=== PATIENT | male | born 1935 | race Caucasian/White ===

== ENCOUNTER 2016-06-27 17:14 | Inpatient (IN) | payer OTHER ==
[~2016-06-27] VITALS: Ht 177.8 cm; Wt 111.1 kg
[~2016-06-27 17:14] MED LIST: ADULT LOW DOSE81 M1 PO; ADVAIR HFA120 INHALA IH; AMLODIPINE-BEN1 EAC3 PO; AMOX TR-K CLV1 EAC4 PO; ANTI-DIARRHEA2 MG PO; CENTRUM SILVER1 EAC1 PO; CENTRUM SILVER1 EAC3 PO; CIPRO500 MG PO; CRESTOR5 MG PO; FERROUS SULFAT325 M2 PO; GLIPIZIDE ER2.5 MG PO; GLUCOPHAGE500 MG PO; GUAIFENESIN600 M1 PO; IRON325 MG PO; LOTREL 2.5/1 CAPSULE PO; LOTREL 5/201 CAPSULE PO; LUPRON DEPOT45 MG IM; NICOTINE PATCH1 EAC2 TD; PANTOPRAZOLE SO40 MG PO; PATANOL OP100 DROP/5 RIGHT EYE; PRAVACHOL10 MG PO; PRAVASTATIN SOD40 MG PO; PREDNISONE20 MG PO; PREDNISONE5 MG PO; PROTONIX40 MG PO; PROVENTIL,2.5 MG/3 M IH; RAYOS5 MG PO; SPIRIVA1 INHALATI IH; TAMSULOSIN HCL0.4 MG PO; VENTOLIN HFA18 GM IH; ZESTORETIC,P1 TABLET PO
[2016-06-27 18:04] LABS: BASE EXCESS 14.8 mEq/L (-3 to +3); BICARBONATE 43.8 mEq/L (22-26); METHEMOGLOBIN 0.9 % (0-1.5); PO2 50 mm Hg (80-100); pH 7.33 (7.35-7.45)
[2016-06-27 18:05] LABS: COMMENTS - BLOOD GASES A+C+; DEVICE NC; O2 FLOW 3 L/MIN; PCO2 83 mm Hg (35-45); SITE RR
[2016-06-27 18:37] LABS: ADD MIUA? YES; BILIRUBIN NEGATIVE; BLOOD NEGATIVE; COLOR YELLOW ((YELLOW)); GLUCOSE (STRIP) NEGATIVE; KETONES NEGATIVE; LEUKOCYTES NEGATIVE; NITRITE NEGATIVE; PH, URINE 6.5 (5-8); PROTEIN (STRIP) 100; UROBILINOGEN 0.2 MG/DL (0.2-1.0)
[2016-06-27 18:41] LABS: HEMATOCRIT 35.6 % (38.0-50.0); MCH 30.4 PG (29.0-34.0); MCHC 29.8 G/DL (30.0-36.0); MEAN PLAT.VOLUME 12.2 uM^3 (9.0-12.4); PLATELET COUNT 102 K/uL (156-360); RBC DIS.WIDTH-CV 14.9 % (11.8-14.6); RBC DIS.WIDTH-SD 53.3 % (39-53); RED BLOOD COUNT 3.49 M/uL (4.00-5.50); WHITE BLOOD COUNT 17.7 K/uL (4.1-10.2)
[2016-06-27 18:58] LABS: CHLORIDE 98 mEq/L (99-109); POTASSIUM 4.6 mEq/L (3.7-5.4); SODIUM 143 mEq/L (136-147)
[2016-06-27 19:00] LABS: GLUCOSE 90 mg/dL (70-99)
[2016-06-27 19:01] LABS: ANION GAP 8 MEQ/L (2-14)
[2016-06-27 19:02] LABS: TOTAL BILIRUBIN 0.3 mg/dL (0.0-1.0)
[2016-06-27 19:03] LABS: ALKALINE PHOSPHATASE 72 IU/L (3-129)
[2016-06-27 19:04] LABS: GFR ESTIMATE (CALCULATED) > 59 mL/min/
[2016-06-27 19:05] LABS: UREA NITROGEN (BUN) 26 mg/dL (9-23)
[2016-06-27 19:06] LABS: NRBC (%) 0.2 /100 WBC (0-0)
[2016-06-27 19:08] LABS: TROP-I INTERPRETATION NEGATIVE; TROPONIN-I < 0.01 ng/mL (0.0-0.30)
[2016-06-27 19:36] LABS: RED BLOOD CELLS 0-5 /HPF (0-5); WHITE BLOOD CELLS 0-5 /HPF (0-5)
[2016-06-27 19:37] LABS: BACTERIA RARE; CASTS NONE SEEN /LPF; CRYSTALS NONE SEEN; EPITHELIAL CELLS NONE SEEN; MUCUS NONE SEEN; UCUL ADDED? NO
[2016-06-27 20:23] LABS: ABS NEUTROPHIL COUNT 13.25; DELETE MACHINE DIFF? YES; EOSINOPHIL ABS CT 0.18; USER ID VLB
[2016-06-27 20:52] LABS: BASE EXCESS 13.2 mEq/L (-3 to +3); BICARBONATE 43.5 mEq/L (22-26); CARBOXY HGB 1.6 % (0-5); METHEMOGLOBIN 1.2 % (0-1.5)
[2016-06-27 20:53] LABS: COMMENTS - BLOOD GASES C+A+; DEVICE NIV; FI02 40 %; MODE SPONT; PCO2 97 mm Hg (35-45); PEEP 5 CM/H20; PO2 91 mm Hg (80-100); PRES. SUPPORT 15 CM/H2O; SITE RR; TOTAL RESP RATE 24 resp/min; pH 7.26 (7.35-7.45)
[2016-06-27 22:15] LABS: BASE EXCESS 13.6 mEq/L (-3 to +3); BICARBONATE 42.1 mEq/L (22-26); COMMENTS - BLOOD GASES C+A+; DEVICE NIV; FI02 30 %; MECHANICAL RATE 20 resp/min; METHEMOGLOBIN 1.3 % (0-1.5); MODE SIMV; PCO2 78 mm Hg (35-45); PEEP 8 CM/H20; PO2 55 mm Hg (80-100); PRES. SUPPORT 15 CM/H2O; SITE RR; TIDAL VOLUME 600 ML; TOTAL RESP RATE 27 resp/min; pH 7.34 (7.35-7.45)
[2016-06-27 23:06] VITALS: BP 164/65
[2016-06-27 23:28] VITALS: BP 164/65
[2016-06-28] VITALS (22 sets, daily range): BP systolic 119–169; BP diastolic 42–78
[2016-06-28 00:07] LABS: POINT-OF-CARE USER ID LABHNS84
[2016-06-28 00:42] LABS: METH RESISTANT S AUREUS PCR NEGATIVE (NEGATIVE)
[2016-06-28 00:57] LABS: PROBE CHECK PASS; SPECIMEN PROCESSING CONTROL PASS
[2016-06-28 01:03] LABS: D-DIMER ELISA 0.49 mg/L FEU (< 0.57); INTER. NORMALIZED RATIO 1.1; PROTHROMBIN TIME 10.7 (9.2-11.2)
[2016-06-28 06:15] LABS: POINT-OF-CARE METER ID UU13113748; POINT-OF-CARE USER ID LABHNS84
[2016-06-28 06:23] LABS: ANION GAP 7 MEQ/L (2-14); CHLORIDE 97 MEQ/L (99-109); GFR ESTIMATE (CALCULATED) 57 mL/min/; GLUCOSE 234 mg/dL (70-99); MAGNESIUM 2.1 mg/dl (1.3-2.7); POTASSIUM 5.1 MEQ/L (3.7-5.4); SAMPLE HEMOLYSIS CHECK 0; SAMPLE ICTERIC CHECK 0; SAMPLE LIPEMIA CHECK 0; SODIUM 141 MEQ/L (136-147); TROP-I INTERPRETATION NEGATIVE; TROPONIN-I < 0.01 ng/mL (0.0-0.30); UREA NITROGEN (BUN) 27 mg/dL (9-23)
[2016-06-28 06:38] LABS: HEMATOCRIT 36.6 % (38.0-50.0); MCH 30.6 PG (29.0-34.0); MCHC 30.1 G/DL (30.0-36.0); MCV 101.7 FL (86-99); RBC DIS.WIDTH-SD 55.4 % (39-53); WHITE BLOOD COUNT 15.6 K/uL (4.1-10.2)
[2016-06-28 07:18] LABS: HEMATOLOGY COMMENT 1 REV
[2016-06-28 07:22] LABS: MEAN PLAT.VOLUME 13.3 uM^3 (9.0-12.4); PLATELET COUNT 99 K/uL (156-360)
[2016-06-28] MEDS ORDERED: SYMBICORT60 INHALAT IH (12:39)
[2016-06-28] MEDS ORDERED: PRAVACHOL10 MG PO (12:39)
[2016-06-28] MEDS ORDERED: LOW DOSE ASPIRI81 M1 PO (12:41)
[2016-06-28] MEDS ORDERED: FISH OIL300 MG PO (12:42)
[2016-06-28] MEDS ORDERED: CENTRUM SILVER1 EAC3 PO (12:42)
[2016-06-28 13:10] LABS: TROP-I INTERPRETATION NEGATIVE; TROPONIN-I < 0.01 ng/mL (0.0-0.30)
[2016-06-28 18:03] LABS: POINT-OF-CARE METER ID UU13113748
[2016-06-28 18:54] LABS: TROP-I INTERPRETATION NEGATIVE; TROPONIN-I < 0.01 ng/mL (0.0-0.30)
[2016-06-29] VITALS (19 sets, daily range): BP systolic 95–190; BP diastolic 51–80
[2016-06-29 05:41] LABS: POINT-OF-CARE METER ID UU14174217
[2016-06-29 06:21] LABS: HEMATOCRIT 34.9 % (38.0-50.0); MCHC 30.1 G/DL (30.0-36.0); MCV 99.7 FL (86-99); MEAN PLAT.VOLUME 12.5 uM^3 (9.0-12.4); PLATELET COUNT 105 K/uL (156-360); RBC DIS.WIDTH-SD 54.4 % (39-53)
[2016-06-29 06:24] LABS: WHITE BLOOD COUNT 22.3 K/uL (4.1-10.2)
[2016-06-29 06:47] LABS: ANION GAP 7 MEQ/L (2-14); CHLORIDE 99 MEQ/L (99-109); GFR ESTIMATE (CALCULATED) > 59 mL/min/; GLUCOSE 187 mg/dL (70-99); MAGNESIUM 2.2 mg/dl (1.3-2.7); POTASSIUM 4.8 MEQ/L (3.7-5.4); SAMPLE HEMOLYSIS CHECK 0; SAMPLE ICTERIC CHECK 0; SAMPLE LIPEMIA CHECK 0; SODIUM 141 MEQ/L (136-147); UREA NITROGEN (BUN) 31 mg/dL (9-23)
[2016-06-29 09:01] LABS: POINT-OF-CARE METER ID UU14174217
[2016-06-29 13:01] LABS: POINT-OF-CARE METER ID UU14174217
[2016-06-29 17:30] LABS: POINT-OF-CARE METER ID UU14174217
[2016-06-29 21:59] LABS: POINT-OF-CARE METER ID UU14162636
[2016-06-30] VITALS (12 sets, daily range): BP systolic 135–197; BP diastolic 57–89
[2016-06-30 06:27] LABS: PLATELET COUNT 124 K/uL (156-360)
[2016-06-30 06:44] LABS: HEMATOCRIT 36.4 % (38.0-50.0); MCH 29.9 PG (29.0-34.0); MCHC 29.9 G/DL (30.0-36.0); MCV 99.7 FL (86-99); RBC DIS.WIDTH-CV 15.1 % (11.8-14.6); RED BLOOD COUNT 3.65 M/uL (4.00-5.50)
[2016-06-30 06:46] LABS: WHITE BLOOD COUNT 36.1 K/uL (4.1-10.2)
[2016-06-30 06:57] LABS: ANION GAP 8 MEQ/L (2-14); CHLORIDE 96 MEQ/L (99-109); GFR ESTIMATE (CALCULATED) > 59 mL/min/; GLUCOSE 253 mg/dL (70-99); MAGNESIUM 2.3 mg/dl (1.3-2.7); POTASSIUM 5.2 MEQ/L (3.7-5.4); SAMPLE HEMOLYSIS CHECK 0; SAMPLE ICTERIC CHECK 0; SAMPLE LIPEMIA CHECK 0; SODIUM 140 MEQ/L (136-147); UREA NITROGEN (BUN) 38 mg/dL (9-23)
[2016-06-30 22:27] LABS: POINT-OF-CARE METER ID UU13113731
[2016-07-01] VITALS (8 sets, daily range): BP systolic 108–174; BP diastolic 55–79
[2016-07-01 05:43] LABS: ANION GAP 8 MEQ/L (2-14); CHLORIDE 97 MEQ/L (99-109); GFR ESTIMATE (CALCULATED) > 59 mL/min/; GLUCOSE 231 mg/dL (70-99); MAGNESIUM 2.1 mg/dl (1.3-2.7); POTASSIUM 5.1 MEQ/L (3.7-5.4); SAMPLE HEMOLYSIS CHECK 0; SAMPLE ICTERIC CHECK 0; SAMPLE LIPEMIA CHECK 0; SODIUM 138 MEQ/L (136-147); UREA NITROGEN (BUN) 38 mg/dL (9-23)
[2016-07-01 07:27] LABS: HEMATOCRIT 36.9 % (38.0-50.0); HEMATOLOGY COMMENT 1 SMEAR COMPATIBLE; MCH 30.3 PG (29.0-34.0); MCHC 30.4 G/DL (30.0-36.0); MCV 99.7 FL (86-99); MEAN PLAT.VOLUME 13.5 uM^3 (9.0-12.4); PLATELET COUNT 118 K/uL (156-360); RBC DIS.WIDTH-CV 15.2 % (11.8-14.6); RBC DIS.WIDTH-SD 55.3 % (39-53); WHITE BLOOD COUNT 37.5 K/uL (4.1-10.2)
[2016-07-01 22:32] LABS: POINT-OF-CARE METER ID UU13113748
[2016-07-02] VITALS: BP 162/63
[2016-07-02 04:00] VITALS: BP 160/67
[2016-07-02 06:08] LABS: MEAN PLAT.VOLUME 12.8 uM^3 (9.0-12.4); PLATELET COUNT 127 K/uL (156-360)
[2016-07-02 06:32] LABS: HEMATOCRIT 37.5 % (38.0-50.0); MCH 30.1 PG (29.0-34.0); MCHC 30.1 G/DL (30.0-36.0); RBC DIS.WIDTH-CV 15.3 % (11.8-14.6); RBC DIS.WIDTH-SD 55.5 % (39-53); RED BLOOD COUNT 3.75 M/uL (4.00-5.50)
[2016-07-02 06:33] LABS: WHITE BLOOD COUNT 33.9 K/uL (4.1-10.2)
[2016-07-02 06:41] LABS: ANION GAP 7 MEQ/L (2-14); CHLORIDE 94 MEQ/L (99-109); GFR ESTIMATE (CALCULATED) 57 mL/min/; GLUCOSE 192 mg/dL (70-99); MAGNESIUM 2.1 mg/dl (1.3-2.7); POTASSIUM 4.9 MEQ/L (3.7-5.4); SAMPLE HEMOLYSIS CHECK 0; SAMPLE ICTERIC CHECK 0; SAMPLE LIPEMIA CHECK 0; SODIUM 137 MEQ/L (136-147); UREA NITROGEN (BUN) 37 mg/dL (9-23)
[2016-07-02 08:00] VITALS: BP 160/89
[2016-07-02 09:11] LABS: POINT-OF-CARE METER ID UU13113731
[2016-07-02] MEDS ORDERED: PREDNISONE10 MG PO (11:26)
[2016-07-02] MEDS ORDERED: SPIRIVA RESPIMAT4 GM IH (11:26)
[2016-07-02 11:52] LABS: POINT-OF-CARE METER ID UU13113731
[2016-07-03 10:02] LABS: POINT-OF-CARE METER ID UU13113731
== END 2016-07-02 14:11 | disposition home or self-care (01) | DRG 189 ==
LOC: EME 17:14 → EDOF 21:14 → 4WEST 21:14
PROVIDERS: Emergency Medicine; Family Medicine; Hospitalist
DX: J96.21 Acute and chronic respiratory failure with hypoxia (principal); J44.0 Chronic obstructive pulmonary disease with (acute) lower respiratory infection; E11.69 Type 2 diabetes mellitus with other specified complication; F05 Delirium due to known physiological condition; J44.1 Chronic obstructive pulmonary disease with (acute) exacerbation; I10 Essential (primary) hypertension; E78.5 Hyperlipidemia, unspecified; D72.829 Elevated white blood cell count, unspecified; E66.9 Obesity, unspecified; Z68.34 Body mass index [BMI] 34.0-34.9, adult; J96.22 Acute and chronic respiratory failure with hypercapnia; Z87.891 Personal history of nicotine dependence; T38.0X5A Adverse effect of glucocorticoids and synthetic analogues, initial encounter; J20.9 Acute bronchitis, unspecified; G47.33 Obstructive sleep apnea (adult) (pediatric); Z91.19 Patient's noncompliance with other medical treatment and regimen; K21.9 Gastro-esophageal reflux disease without esophagitis; Z86.73 Personal history of transient ischemic attack (TIA), and cerebral infarction without residual deficits; Z85.46 Personal history of malignant neoplasm of prostate; Z85.828 Personal history of other malignant neoplasm of skin
CPT/HCPCS: 36600; 70450; 71010; 71020; 80048; 80053; 81003; 82803; 82948; 83735; 83880; 84100; 84484; 85025; 85027; 85379; 85610; 85730; 87641; 93005; 94002; 94003; 94640; 94640 76; 94760; 94799; 97530 GO; 99202; 99281; 99285; C9113; J0456; J0696; J1644; J1815; J2920; J2930; J7050; J7120; J7512

== ENCOUNTER 2017-06-02 10:34 | Emergency (ER) | payer OTHER ==
[~2017-06-02] VITALS: Ht 177.8 cm; Wt 110.3 kg
[~2017-06-02 10:34] MED LIST changes: +FISH OIL300 MG PO; +LOW DOSE ASPIRI81 M1 PO; +PREDNISONE10 MG PO; +SPIRIVA RESPIMAT4 GM IH; +SYMBICORT60 INHALAT IH
[2017-06-02] MEDS ORDERED: CEPHALEXIN500 MG PO (10:54)
[2017-06-02 11:23] VITALS: BP 146/61
== END 2017-06-02 11:23 | disposition home or self-care (01) ==
LOC: EME 10:34
DX: Z48.817 Encounter for surgical aftercare following surgery on the skin and subcutaneous tissue (principal); S51.802A Unspecified open wound of left forearm, initial encounter; Z98.890 Other specified postprocedural states; Z85.828 Personal history of other malignant neoplasm of skin; K21.9 Gastro-esophageal reflux disease without esophagitis; I10 Essential (primary) hypertension; E78.5 Hyperlipidemia, unspecified; E11.9 Type 2 diabetes mellitus without complications; J44.9 Chronic obstructive pulmonary disease, unspecified; Z87.891 Personal history of nicotine dependence; Z79.82 Long term (current) use of aspirin
CPT/HCPCS: 99281; 99284

== ENCOUNTER 2017-08-07 02:33 | Emergency (ER) | payer OTHER ==
[~2017-08-07] VITALS: Ht 177.8 cm; Wt 75.9 kg
[~2017-08-07 02:33] MED LIST changes: +CEPHALEXIN500 MG PO
[2017-08-07 05:34] VITALS: BP 164/77
== END 2017-08-07 05:41 | disposition home or self-care (01) ==
LOC: EME 02:33
PROC: 2W3CX1Z Immobilization of Right Lower Arm using Splint (ICD-10-PCS; principal; 2017-08-07)
DX: S52.514A Nondisplaced fracture of right radial styloid process, initial encounter for closed fracture (principal); S09.90XA Unspecified injury of head, initial encounter; E11.9 Type 2 diabetes mellitus without complications; I10 Essential (primary) hypertension; E78.5 Hyperlipidemia, unspecified; K21.9 Gastro-esophageal reflux disease without esophagitis; W01.0XXA Fall on same level from slipping, tripping and stumbling without subsequent striking against object, initial encounter; Z87.891 Personal history of nicotine dependence; Z85.828 Personal history of other malignant neoplasm of skin; Z79.84 Long term (current) use of oral hypoglycemic drugs; Z79.82 Long term (current) use of aspirin
CPT/HCPCS: 70450; 71046; 73110; 99281; 99284

== ENCOUNTER 2017-09-19 07:04 | Inpatient (IN) | payer OTHER ==
[~2017-09-19] VITALS: Ht 177.8 cm; Wt 118.4 kg
[2017-09-19 08:06] LABS: ALBUMIN 3.8 g/dL (3.2-4.8); CHLORIDE 100 mEq/L (99-109); POTASSIUM 4.8 mEq/L (3.7-5.4); SODIUM 143 mEq/L (136-147)
[2017-09-19 08:07] LABS: HEMATOCRIT 34.4 % (38.0-50.0); HEMOGLOBIN 10.6 G/DL (12.5-16.6); MCH 29.9 PG (29.0-34.0); MCHC 30.8 G/DL (30.0-36.0); MCV 96.9 FL (86-99); NRBC (%) 0.1 /100 WBC (0-0); PLATELET COUNT 107 K/uL (156-360); RBC DIS.WIDTH-CV 15.4 % (11.8-14.6); RBC DIS.WIDTH-SD 55.1 % (39-53); RED BLOOD COUNT 3.55 M/uL (4.00-5.50)
[2017-09-19 08:08] LABS: WHITE BLOOD COUNT 40.7 K/uL (4.1-10.2)
[2017-09-19 08:09] LABS: GLUCOSE 145 mg/dL (70-99); TOTAL PROTEIN 6.9 g/dL (6.4-8.3)
[2017-09-19 08:11] LABS: TOTAL BILIRUBIN 0.4 mg/dL (0.0-1.0)
[2017-09-19 08:12] LABS: ALKALINE PHOSPHATASE 86 IU/L (3-129); CREATININE 1.5 mg/dL (0.6-1.3); GFR ESTIMATE (CALCULATED) 48 mL/min/ (58.99-99999)
[2017-09-19 08:13] LABS: UREA NITROGEN (BUN) 26 mg/dL (9-23)
[2017-09-19 08:14] LABS: AST (GOT) 20 IU/L (2-34)
[2017-09-19 08:15] LABS: ALT (GPT) 16 IU/L (3-49)
[2017-09-19 09:01] LABS: APPEARANCE SL.HAZY ((CLEAR)); BILIRUBIN NEGATIVE; BLOOD NEGATIVE; COLOR YELLOW ((YELLOW)); GLUCOSE (STRIP) NEGATIVE; KETONES NEGATIVE; LEUKOCYTES NEGATIVE; NITRITE NEGATIVE; PROTEIN (STRIP) 100; SPECIFIC GRAVITY 1.015 (1.000-1.030); UROBILINOGEN 0.2 MG/DL (0.2-1.0)
[2017-09-19 09:43] LABS: EPITHELIAL CELLS RARE /HPF; RED BLOOD CELLS 0-5 /HPF (0-5); WHITE BLOOD CELLS 0-5 /HPF (0-5)
[2017-09-19 09:45] LABS: AMORPHOUS URATES CRYSTALS 2+; BACTERIA RARE /HPF; MUCUS NONE SEEN /LPF; UCUL ADDED? NO
[2017-09-19 10:37] LABS: BICARBONATE 36.5 mEq/L (22-26); CARBOXY HGB 2.8 % (0-5); COMMENTS - BLOOD GASES A+C+; METHEMOGLOBIN 0.6 % (0-1.5); O2 FLOW 5 L/MIN; PCO2 76 mm Hg (35-45); PO2 61 mm Hg (80-100); SITE RR; pH 7.29 (7.35-7.45)
[2017-09-19 10:38] LABS: DEVICE NC
[2017-09-19 13:32] LABS: BASE EXCESS 7.3 mEq/L (-3 to +3); BICARBONATE 36.3 mEq/L (22-26); METHEMOGLOBIN 0.8 % (0-1.5); PO2 73 mm Hg (80-100)
[2017-09-19 13:33] LABS: COMMENTS - BLOOD GASES A+C+; CONTINUOUS POS AIRWAY PRESSURE 5 cm H2O; DEVICE NIV; FI02 35 %; MODE PS/CPAP; PCO2 81 mm Hg (35-45); PRES. SUPPORT 10 CM/H2O; SITE RR; TOTAL RESP RATE 16 resp/min; pH 7.26 (7.35-7.45)
[2017-09-19 14:45] VITALS: BP 148/55
[2017-09-19 17:53] LABS: BASE EXCESS 6.9 mEq/L (-3 to +3); BICARBONATE 31.9 mEq/L (22-26); CARBOXY HGB 1.2 % (0-5); METHEMOGLOBIN 1.5 % (0-1.5)
[2017-09-19 17:54] LABS: COMMENTS - BLOOD GASES A+C+; DEVICE VENT; FI02 60 %; MECHANICAL RATE 18 resp/min; MODE AC/VC; PCO2 47 mm Hg (35-45); PEEP 6 CM/H20; PO2 178 mm Hg (80-100); SITE LR; TIDAL VOLUME 550 ML; TOTAL RESP RATE 18 resp/min; pH 7.44 (7.35-7.45)
[2017-09-19 19:00] VITALS: BP 144/53
[2017-09-19 20:00] VITALS: BP 144/56
[2017-09-19 21:00] VITALS: BP 122/49
[2017-09-19 22:00] VITALS: BP 137/52
[2017-09-19 23:00] VITALS: BP 148/62
[2017-09-20] VITALS (18 sets, daily range): BP systolic 115–162; BP diastolic 54–85
[2017-09-20 04:47] LABS: PLATELET COUNT 94 K/uL (156-360)
[2017-09-20 04:59] LABS: HEMATOCRIT 31.6 % (38.0-50.0); HEMOGLOBIN 9.7 G/DL (12.5-16.6); MCH 29.1 PG (29.0-34.0); MCHC 30.7 G/DL (30.0-36.0); MCV 94.9 FL (86-99); RBC DIS.WIDTH-CV 15.4 % (11.8-14.6); RBC DIS.WIDTH-SD 53.2 % (39-53); RED BLOOD COUNT 3.33 M/uL (4.00-5.50); WHITE BLOOD COUNT 33.9 K/uL (4.1-10.2)
[2017-09-20 05:07] LABS: CHLORIDE 103 mEq/L (99-109); POTASSIUM 4.7 mEq/L (3.7-5.4); SODIUM 142 mEq/L (136-147)
[2017-09-20 05:08] LABS: MAGNESIUM 1.9 mg/dL (1.3-2.7)
[2017-09-20 05:09] LABS: GLUCOSE 200 mg/dL (70-99)
[2017-09-20 05:13] LABS: CREATININE 1.4 mg/dL (0.6-1.3); GFR ESTIMATE (CALCULATED) 52 mL/min/ (58.99-99999); PHOSPHORUS 3.5 mg/dL (2.5-4.9)
[2017-09-20 05:14] LABS: UREA NITROGEN (BUN) 28 mg/dL (9-23)
[2017-09-20 06:57] LABS: ABS NEUTROPHIL COUNT 31.2; ANISOCYTOSIS 2+; BAND NEUTROPHILS 6.6 % (0-8.0); EOSINOPHIL ABS CT 0; LYMPHOCYTES 2.2 % (15.0-45.0); MACROCYTES 1+; METAMYELOCYTES 0.9 %; MICROCYTOSIS 1+; MONOCYTES 2.2 % (0-9.0); MYELOCYTES 2.6 %; PLAT.SUFFICIENCY DECREASED; SEG.NEUTROPHILS 85.5 % (46.0-76.0)
[2017-09-21] VITALS (15 sets, daily range): BP systolic 115–163; BP diastolic 61–96
[2017-09-21 06:32] LABS: CHLORIDE 107 MEQ/L (99-109); CREATININE 1.3 MG/DL (0.6-1.3); GFR ESTIMATE (CALCULATED) 56 mL/min/ (58.99-99999); GLUCOSE 151 mg/dL (70-99); MAGNESIUM 2.2 mg/dl (1.3-2.7); PHOSPHORUS 4.4 mg/dL (2.5-4.9); POTASSIUM 4.6 MEQ/L (3.7-5.4); SODIUM 144 MEQ/L (136-147); UREA NITROGEN (BUN) 28 mg/dL (9-23)
[2017-09-21 06:44] LABS: HEMATOCRIT 33.8 % (38.0-50.0); MCH 28.7 PG (29.0-34.0); MCHC 29.6 G/DL (30.0-36.0); MCV 97.1 FL (86-99); NRBC (%) 0.1 /100 WBC (0-0); RBC DIS.WIDTH-CV 15.6 % (11.8-14.6); RBC DIS.WIDTH-SD 54.9 % (39-53); RED BLOOD COUNT 3.48 M/uL (4.00-5.50)
[2017-09-21 06:46] LABS: WHITE BLOOD COUNT 43.6 K/uL (4.1-10.2)
[2017-09-21 06:56] LABS: PLAT.SUFFICIENCY DECREASED; PLATELET COUNT 116 K/uL (156-360)
[2017-09-21 18:06] LABS: APPEARANCE TURBID ((CLEAR)); BILIRUBIN NEGATIVE; BLOOD LARGE; GLUCOSE (STRIP) 50; KETONES NEGATIVE; LEUKOCYTES NEGATIVE; NITRITE NEGATIVE; PROTEIN (STRIP) 100; SPECIFIC GRAVITY 1.018 (1.000-1.030); UROBILINOGEN 0.2 MG/DL (0.2-1.0)
[2017-09-21 18:10] LABS: COLOR AMBER ((YELLOW))
[2017-09-21 18:16] LABS: BACTERIA NONE SEEN /HPF; EPITHELIAL CELLS NONE SEEN /HPF; MUCUS NONE SEEN /LPF; RED BLOOD CELLS TNTC /HPF (0-5); UCUL ADDED? YES; WHITE BLOOD CELLS 0-5 /HPF (0-5)
[2017-09-22 02:39] VITALS: BP 154/70
[2017-09-22 07:45] VITALS: BP 183/86
[2017-09-22 11:54] VITALS: BP 174/79
[2017-09-22 15:47] VITALS: BP 145/81
[2017-09-22 19:12] VITALS: BP 156/72
[2017-09-23 00:17] VITALS: BP 146/61
[2017-09-23 04:00] VITALS: BP 186/84
[2017-09-23 06:35] LABS: CHLORIDE 104 MEQ/L (99-109); CREATININE 1.1 MG/DL (0.6-1.3); GFR ESTIMATE (CALCULATED) > 59 mL/min/ (58.99-99999); GLUCOSE 208 mg/dL (70-99); SODIUM 142 MEQ/L (136-147); UREA NITROGEN (BUN) 36 mg/dL (9-23)
[2017-09-23 06:42] LABS: HEMATOCRIT 33.4 % (38.0-50.0); MCH 29.6 PG (29.0-34.0); MCHC 29.9 G/DL (30.0-36.0); MCV 98.8 FL (86-99); NRBC (%) 0.1 /100 WBC (0-0); RBC DIS.WIDTH-CV 15.8 % (11.8-14.6); RBC DIS.WIDTH-SD 56.7 % (39-53); RED BLOOD COUNT 3.38 M/uL (4.00-5.50)
[2017-09-23 06:45] LABS: PLAT.SUFFICIENCY ADEQUATE
[2017-09-23 06:48] LABS: POTASSIUM 5.6 MEQ/L (3.7-5.4)
[2017-09-23 06:52] LABS: PLATELET COUNT 186 K/uL (156-360); WHITE BLOOD COUNT 63.5 K/uL (4.1-10.2)
[2017-09-23 07:25] VITALS: BP 171/81
[2017-09-23 11:33] VITALS: BP 164/76
[2017-09-23 16:58] VITALS: BP 153/68
[2017-09-23 20:00] VITALS: BP 167/73
[2017-09-24 00:41] VITALS: BP 167/73
[2017-09-24 03:37] VITALS: BP 167/73
[2017-09-24 07:29] LABS: HEMATOCRIT 32.3 % (38.0-50.0); HEMOGLOBIN 9.8 G/DL (12.5-16.6); MCH 29.7 PG (29.0-34.0); MCHC 30.3 G/DL (30.0-36.0); MCV 97.9 FL (86-99); NRBC (%) 0.2 /100 WBC (0-0); RBC DIS.WIDTH-CV 15.6 % (11.8-14.6); RBC DIS.WIDTH-SD 55.7 % (39-53)
[2017-09-24 07:42] LABS: CHLORIDE 105 MEQ/L (99-109); CREATININE 1.1 MG/DL (0.6-1.3); GFR ESTIMATE (CALCULATED) > 59 mL/min/ (58.99-99999); GLUCOSE 202 mg/dL (70-99); POTASSIUM 5.3 MEQ/L (3.7-5.4); SODIUM 142 MEQ/L (136-147); UREA NITROGEN (BUN) 31 mg/dL (9-23)
[2017-09-24 08:04] LABS: PLAT.SUFFICIENCY DECREASED; PLATELET COUNT 165 K/uL (156-360)
[2017-09-24 08:10] VITALS: BP 172/89
[2017-09-24 12:58] VITALS: BP 150/67
[2017-09-24 17:20] VITALS: BP 154/65
[2017-09-24 19:53] VITALS: BP 162/76
[2017-09-25] VITALS (7 sets, daily range): BP systolic 100–183; BP diastolic 54–80
[2017-09-25 06:29] LABS: PLATELET COUNT 153 K/uL (156-360)
[2017-09-25 06:33] LABS: HEMATOCRIT 31.5 % (38.0-50.0); HEMOGLOBIN 9.5 G/DL (12.5-16.6); MCH 29.5 PG (29.0-34.0); MCHC 30.2 G/DL (30.0-36.0); MCV 97.8 FL (86-99); NRBC (%) 0.2 /100 WBC (0-0); RBC DIS.WIDTH-CV 15.4 % (11.8-14.6); RBC DIS.WIDTH-SD 55.1 % (39-53); RED BLOOD COUNT 3.22 M/uL (4.00-5.50)
[2017-09-25 06:34] LABS: WHITE BLOOD COUNT 52.7 K/uL (4.1-10.2)
[2017-09-25 06:57] LABS: ALBUMIN 3.1 G/DL (3.2-4.8); ALKALINE PHOSPHATASE 54 IU/L (3-129); ALT (GPT) 25 IU/L (3-49); AST (GOT) 20 IU/L (2-34); CHLORIDE 106 MEQ/L (99-109); CREATININE 1.1 MG/DL (0.6-1.3); GFR ESTIMATE (CALCULATED) > 59 mL/min/ (58.99-99999); GLUCOSE 169 mg/dL (70-99); POTASSIUM 4.7 MEQ/L (3.7-5.4); SODIUM 143 MEQ/L (136-147); TOTAL BILIRUBIN 0.2 MG/DL (0.0-1.0); TOTAL PROTEIN 5.4 G/DL (6.4-8.3); UREA NITROGEN (BUN) 29 mg/dL (9-23)
[2017-09-25 14:27] LABS: ANISOCYTOSIS 1+; LYMPHOCYTES 4.5 % (15.0-45.0); NUCLEATED RBC'S 0.5; SEG.NEUTROPHILS 65.5 % (46.0-76.0)
[2017-09-25 14:28] LABS: PLAT.SUFFICIENCY ADEQUATE; POLYCHROMASIA 1+
[2017-09-26 04:02] VITALS: BP 160/68
[2017-09-26 06:40] LABS: PLATELET COUNT 144 K/uL (156-360)
[2017-09-26 06:57] LABS: HEMATOCRIT 30.8 % (38.0-50.0); HEMOGLOBIN 9.4 G/DL (12.5-16.6); MCH 29.7 PG (29.0-34.0); MCHC 30.5 G/DL (30.0-36.0); MCV 97.2 FL (86-99); NRBC (%) 0.3 /100 WBC (0-0); RBC DIS.WIDTH-CV 15.6 % (11.8-14.6); RBC DIS.WIDTH-SD 55.7 % (39-53); RED BLOOD COUNT 3.17 M/uL (4.00-5.50)
[2017-09-26 06:59] LABS: WHITE BLOOD COUNT 45.8 K/uL (4.1-10.2)
[2017-09-26 07:02] LABS: ALBUMIN 3.2 G/DL (3.2-4.8); ALKALINE PHOSPHATASE 55 IU/L (3-129); ALT (GPT) 36 IU/L (3-49); AST (GOT) 26 IU/L (2-34); CHLORIDE 103 MEQ/L (99-109); CREATININE 1.2 MG/DL (0.6-1.3); GFR ESTIMATE (CALCULATED) > 59 mL/min/ (58.99-99999); POTASSIUM 4.2 MEQ/L (3.7-5.4); SODIUM 143 MEQ/L (136-147); TOTAL BILIRUBIN 0.2 MG/DL (0.0-1.0); TOTAL PROTEIN 5.4 G/DL (6.4-8.3); UREA NITROGEN (BUN) 29 mg/dL (9-23)
[2017-09-26 07:09] LABS: GLUCOSE 119 mg/dL (70-99)
[2017-09-26 07:21] LABS: ABS NEUTROPHIL COUNT 36.7; ANISOCYTOSIS 1+; BAND NEUTROPHILS 9.7 % (0-8.0); EOSINOPHIL ABS CT 0.2; EOSINOPHILS 0.4 % (0-5.0); LYMPHOCYTES 4.9 % (15.0-45.0); MACROCYTES 1+; METAMYELOCYTES 2.6 %; MICROCYTOSIS 1+; MYELOCYTES 11.9 %; SEG.NEUTROPHILS 70.5 % (46.0-76.0)
[2017-09-26 07:41] VITALS: BP 168/68
[2017-09-26] MEDS ORDERED: SPIRIVA RESPIMAT4 GM IH (11:36)
[2017-09-26] MEDS ORDERED: DULERA 100 MCG/13 GM IH (11:36)
[2017-09-26] MEDS ORDERED: Tums,OsCal PO (11:36)
[2017-09-26] MEDS ORDERED: PREDNISONE10 MG PO (11:36)
[2017-09-26] MEDS ORDERED: VENTOLIN HFA18 GM IH (11:37)
[2017-09-26 16:11] VITALS: BP 143/77
== END 2017-09-26 18:28 | disposition home health service (06) | DRG 208 ==
LOC: EME 07:04 → EDOF 10:08 → 4WEST 10:08 → ENRESERV 10:10 → CANRESERV 10:10 → ENRESERV 11:16 → EDOF 13:20 → ENRESERV 13:25 → 4WEST 14:36 → ENRESERV 09-21 16:06 → 5EAST 09-21 18:07 → ENPENDDIS 09-26 → 5EAST 09-26 18:28
PROVIDERS: Emergency Medicine; Hospitalist; Internal Medicine; Internal Medicine Pulmonary Disease; Nurse Practitioner Family; Physician Assistant; Specialist
PROC: 5A09357 Assistance with Respiratory Ventilation, Less than 24 Consecutive Hours, Continuous Positive Airway Pressure (ICD-10-PCS; principal; 2017-09-19)
PROC: 0BH17EZ Insertion of Endotracheal Airway into Trachea, Via Natural or Artificial Opening (ICD-10-PCS; principal; 2017-09-19)
PROC: 5A1935Z Respiratory Ventilation, Less than 24 Consecutive Hours (ICD-10-PCS; principal; 2017-09-19)
DX: J96.21 Acute and chronic respiratory failure with hypoxia (principal); J96.22 Acute and chronic respiratory failure with hypercapnia; J44.1 Chronic obstructive pulmonary disease with (acute) exacerbation; J20.9 Acute bronchitis, unspecified; J44.0 Chronic obstructive pulmonary disease with (acute) lower respiratory infection; Z99.81 Dependence on supplemental oxygen; E87.2 Acidosis; D72.829 Elevated white blood cell count, unspecified; T38.0X5A Adverse effect of glucocorticoids and synthetic analogues, initial encounter; R91.1 Solitary pulmonary nodule; G47.33 Obstructive sleep apnea (adult) (pediatric); I10 Essential (primary) hypertension; E11.9 Type 2 diabetes mellitus without complications; E78.5 Hyperlipidemia, unspecified; E66.9 Obesity, unspecified; Z68.38 Body mass index [BMI] 38.0-38.9, adult; K21.9 Gastro-esophageal reflux disease without esophagitis; M54.5 Low back pain; H91.90 Unspecified hearing loss, unspecified ear; Z86.73 Personal history of transient ischemic attack (TIA), and cerebral infarction without residual deficits; Z87.891 Personal history of nicotine dependence; Z85.828 Personal history of other malignant neoplasm of skin; Z87.440 Personal history of urinary (tract) infections; Z79.84 Long term (current) use of oral hypoglycemic drugs; Z79.82 Long term (current) use of aspirin
CPT/HCPCS: 36600; 71045; 71046; 71250; 74019; 78582; 80048; 80053; 80202; 81003; 82803; 82948; 83605; 83735; 84100; 85025; 85027; 87040; 87070; 87076; 87077; 87086; 87185; 87205; 87449; 87502; 87641; 93005; 94002; 94003; 94010; 94640; 94640 76; 94660; 94667; 94668; 94760; 94799; 97530 GO; 97530 GP; 99202; 99281; 99285; A9540; A9567; J0456; J0696; J1644; J1815; J2250; J2543; J2704; J2920; J2930; J3370; J3475; J7030; J7050; J7120; J7512

== ENCOUNTER 2017-12-11 11:49 | Emergency (ER) | payer OTHER ==
[~2017-12-11] VITALS: Ht 177.8 cm; Wt 104.2 kg
[~2017-12-11 11:49] MED LIST changes: +DULERA 100 MCG/13 GM IH; +Tums,OsCal PO
[2017-12-11 12:30] LABS: HEMATOCRIT 30.5 % (38.0-50.0); HEMOGLOBIN 9.6 G/DL (12.5-16.6); MCH 29.4 PG (29.0-34.0); MCHC 31.5 G/DL (30.0-36.0); MCV 93.3 FL (86-99); NRBC (%) 0.1 /100 WBC (0-0); PLATELET COUNT 199 K/uL (156-360); RBC DIS.WIDTH-CV 15.7 % (11.8-14.6); RBC DIS.WIDTH-SD 53.7 % (39-53); RED BLOOD COUNT 3.27 M/uL (4.00-5.50); WHITE BLOOD COUNT 28.9 K/uL (4.1-10.2)
[2017-12-11 12:44] LABS: INTER. NORMALIZED RATIO 1.3
[2017-12-11 12:48] LABS: CHLORIDE 104 mEq/L (99-109); POTASSIUM 5.3 mEq/L (3.7-5.4); SODIUM 140 mEq/L (136-147)
[2017-12-11 12:50] LABS: GLUCOSE 219 mg/dL (70-99)
[2017-12-11 12:53] LABS: CREATININE 1.5 mg/dL (0.6-1.3); GFR ESTIMATE (CALCULATED) 48 mL/min/ (58.99-99999)
[2017-12-11 12:54] LABS: UREA NITROGEN (BUN) 26 mg/dL (9-23)
[2017-12-11 13:03] LABS: ABS NEUTROPHIL COUNT 26.1; BAND NEUTROPHILS 2.6 % (0-8.0); EOSINOPHIL ABS CT 0.3; EOSINOPHILS 0.9 % (0-5.0); LYMPHOCYTES 6.1 % (15.0-45.0); METAMYELOCYTES 0.9 %; MONOCYTES 1.7 % (0-9.0); SEG.NEUTROPHILS 87.8 % (46.0-76.0); SMUDGE CELLS 0.9
[2017-12-11 15:13] VITALS: BP 139/61
[2017-12-11 22:01] LABS: ANISOCYTOSIS 1+; MICROCYTOSIS 1+; PLAT.SUFFICIENCY ADEQUATE; POLYCHROMASIA 1+
== END 2017-12-11 15:15 | disposition home or self-care (01) ==
LOC: EME 11:49
PROVIDERS: Emergency Medicine
DX: H11.31 Conjunctival hemorrhage, right eye (principal); D72.829 Elevated white blood cell count, unspecified; J44.9 Chronic obstructive pulmonary disease, unspecified; R51 Headache; Z91.81 History of falling; I10 Essential (primary) hypertension; E78.5 Hyperlipidemia, unspecified; E11.9 Type 2 diabetes mellitus without complications; Z79.84 Long term (current) use of oral hypoglycemic drugs; Z79.82 Long term (current) use of aspirin; Z99.81 Dependence on supplemental oxygen; Z85.828 Personal history of other malignant neoplasm of skin; Z87.891 Personal history of nicotine dependence
CPT/HCPCS: 70450; 80048; 85025; 85610; 93005; 99281; 99285

== ENCOUNTER 2017-12-31 20:53 | Inpatient (IN) | payer OTHER ==
[~2017-12-31] VITALS: Ht 177.8 cm; Wt 101.7 kg
[2017-12-31 21:43] LABS: PLATELET COUNT 157 K/uL (156-360)
[2017-12-31 21:51] LABS: ALBUMIN 3.5 g/dL (3.2-4.8)
[2017-12-31 21:52] LABS: CHLORIDE 103 mEq/L (99-109); POTASSIUM 4.8 mEq/L (3.7-5.4); SODIUM 136 mEq/L (136-147)
[2017-12-31 21:54] LABS: GLUCOSE 151 mg/dL (70-99); TOTAL PROTEIN 6.5 g/dL (6.4-8.3)
[2017-12-31 21:56] LABS: TOTAL BILIRUBIN 0.3 mg/dL (0.0-1.0)
[2017-12-31 21:57] LABS: ALKALINE PHOSPHATASE 69 IU/L (3-129)
[2017-12-31 21:58] LABS: CREATININE 1.7 mg/dL (0.6-1.3); GFR ESTIMATE (CALCULATED) 41 mL/min/ (58.99-99999)
[2017-12-31 21:59] LABS: AST (GOT) 34 IU/L (2-34); UREA NITROGEN (BUN) 28 mg/dL (9-23)
[2017-12-31 22:01] LABS: ALT (GPT) 20 IU/L (3-49); LIPASE 23 U/L (1.0-51.0)
[2017-12-31 22:03] LABS: HEMATOCRIT 29.2 % (38.0-50.0); HEMOGLOBIN 9.4 G/DL (12.5-16.6); MCH 28.7 PG (29.0-34.0); MCHC 32.2 G/DL (30.0-36.0); NRBC (%) 0.1 /100 WBC (0-0); RBC DIS.WIDTH-CV 15.9 % (11.8-14.6); RBC DIS.WIDTH-SD 52.2 % (39-53); RED BLOOD COUNT 3.27 M/uL (4.00-5.50)
[2017-12-31 22:21] LABS: MCV 89.3 FL (86-99); WHITE BLOOD COUNT 31.9 K/uL (4.1-10.2)
[2017-12-31 23:33] LABS: APPEARANCE CLEAR ((CLEAR)); BILIRUBIN NEGATIVE; BLOOD NEGATIVE; COLOR YELLOW ((YELLOW)); GLUCOSE (STRIP) NEGATIVE; KETONES NEGATIVE; LEUKOCYTES NEGATIVE; NITRITE NEGATIVE; PROTEIN (STRIP) 100; SPECIFIC GRAVITY 1.013 (1.000-1.030); UROBILINOGEN 0.2 MG/DL (0.2-1.0)
[2017-12-31 23:38] LABS: BACTERIA NONE SEEN /HPF; EPITHELIAL CELLS NONE SEEN /HPF; MUCUS NONE SEEN /LPF; RED BLOOD CELLS 0-5 /HPF (0-5); UCUL ADDED? NO; WHITE BLOOD CELLS 0-5 /HPF (0-5)
[2018-01-01 08:08] VITALS: BP 135/62
[2018-01-01 09:12] LABS: HEMATOCRIT 29.7 % (38.0-50.0); MCH 27.4 PG (29.0-34.0); MCHC 30.3 G/DL (30.0-36.0); MCV 90.5 FL (86-99); RBC DIS.WIDTH-CV 15.9 % (11.8-14.6); RBC DIS.WIDTH-SD 52.7 % (39-53); RED BLOOD COUNT 3.28 M/uL (4.00-5.50); WHITE BLOOD COUNT 26.4 K/uL (4.1-10.2)
[2018-01-01 09:34] LABS: CHLORIDE 104 MEQ/L (99-109); CREATININE 1.5 MG/DL (0.6-1.3); GFR ESTIMATE (CALCULATED) 48 mL/min/ (58.99-99999); GLUCOSE 153 mg/dL (70-99); SODIUM 140 MEQ/L (136-147); UREA NITROGEN (BUN) 25 mg/dL (9-23)
[2018-01-01 09:57] LABS: HEMATOLOGY COMMENT 1 SN; PLAT.SUFFICIENCY ADEQUATE; PLATELET COUNT 151 K/uL (156-360)
[2018-01-01 15:41] VITALS: BP 135/67
[2018-01-01 19:44] VITALS: BP 134/62
[2018-01-01 23:35] VITALS: BP 123/58
[2018-01-02 04:25] VITALS: BP 124/60
[2018-01-02 05:34] LABS: HEMATOCRIT 28.8 % (38.0-50.0); HEMOGLOBIN 8.9 G/DL (12.5-16.6); MCH 28.1 PG (29.0-34.0); MCHC 30.9 G/DL (30.0-36.0); MCV 90.9 FL (86-99); PLATELET COUNT 141 K/uL (156-360); RBC DIS.WIDTH-SD 53.3 % (39-53); RED BLOOD COUNT 3.17 M/uL (4.00-5.50); WHITE BLOOD COUNT 25.8 K/uL (4.1-10.2)
[2018-01-02 06:16] LABS: CHLORIDE 105 MEQ/L (99-109); CREATINE KINASE 107 IU/L (1-294); CREATININE 1.3 MG/DL (0.6-1.3); GFR ESTIMATE (CALCULATED) 56 mL/min/ (58.99-99999); GLUCOSE 137 mg/dL (70-99); POTASSIUM 4.5 MEQ/L (3.7-5.4); SODIUM 140 MEQ/L (136-147); UREA NITROGEN (BUN) 22 mg/dL (9-23)
[2018-01-02 06:24] LABS: ABS NEUTROPHIL COUNT 23.2; BAND NEUTROPHILS 8.2 % (0-8.0); EOSINOPHIL ABS CT 0; LYMPHOCYTES 2.8 % (15.0-45.0); METAMYELOCYTES 2.7 %; MONOCYTES 1.8 % (0-9.0); MYELOCYTES 2.7 %; SEG.NEUTROPHILS 81.8 % (46.0-76.0)
[2018-01-02 08:20] VITALS: BP 175/72
[2018-01-02 11:00] VITALS: BP 152/67
[2018-01-02] MEDS ORDERED: GLUCOTROL XL2.5 MG PO (14:47)
[2018-01-02] MEDS ORDERED: BREO ELLIPTA I1 EACH IH (14:48)
[2018-01-02] MEDS ORDERED: INCRUSE ELLI62.5 MCG IH (14:48)
[2018-01-02] MEDS ORDERED: TOBRAMYCIN SULFA5 ML RIGHT EYE (14:49)
[2018-01-02] MEDS ORDERED: LASIX20 MG PO (14:50)
[2018-01-02] MEDS ORDERED: TUMS500 MG PO (14:51)
[2018-01-02 15:17] VITALS: BP 152/68
[2018-01-02 19:28] VITALS: BP 169/74
[2018-01-03 00:21] VITALS: BP 143/57
[2018-01-03 04:15] VITALS: BP 137/92
[2018-01-03 08:17] VITALS: BP 139/64
[2018-01-03] MEDS ORDERED: PRAVACHOL10 MG PO (08:50)
[2018-01-03] MEDS ORDERED: GLUCOTROL XL2.5 MG PO (08:50)
[2018-01-03] MEDS ORDERED: CEFTIN500 MG PO (08:50)
[2018-01-03] MEDS ORDERED: INCRUSE ELLI62.5 MCG IH (08:50)
[2018-01-03] MEDS ORDERED: DULERA 100 MCG/13 GM IH (08:50)
[2018-01-03] MEDS ORDERED: AMLODIPINE-BEN1 EAC3 PO (08:50)
[2018-01-03] MEDS ORDERED: PROTONIX40 MG PO (08:50)
[2018-01-03] MEDS ORDERED: VENTOLIN HFA18 GM IH (08:50)
[2018-01-03] MEDS ORDERED: LIDOCAINE700 MG TP (08:51)
[2018-01-03 11:31] VITALS: BP 148/68
== END 2018-01-03 14:15 | disposition home health service (06) | DRG 193 ==
LOC: EME → EDBD 20:53 → ENRESERV 01-01 04:59 → EDOF 01-01 05:01 → ENRESERV 01-01 05:43 → 3EAST 01-01 07:38
PROVIDERS: Emergency Medicine; Hospitalist; Internal Medicine
PROC: 5A09357 Assistance with Respiratory Ventilation, Less than 24 Consecutive Hours, Continuous Positive Airway Pressure (ICD-10-PCS; principal; 2018-01-02)
DX: J18.9 Pneumonia, unspecified organism (principal); J96.21 Acute and chronic respiratory failure with hypoxia; J44.1 Chronic obstructive pulmonary disease with (acute) exacerbation; J44.0 Chronic obstructive pulmonary disease with (acute) lower respiratory infection; J96.22 Acute and chronic respiratory failure with hypercapnia; Z87.891 Personal history of nicotine dependence; G47.33 Obstructive sleep apnea (adult) (pediatric); E11.9 Type 2 diabetes mellitus without complications; E66.9 Obesity, unspecified; Z68.32 Body mass index [BMI] 32.0-32.9, adult; Z99.81 Dependence on supplemental oxygen; K59.00 Constipation, unspecified; I10 Essential (primary) hypertension; E78.5 Hyperlipidemia, unspecified; Z86.73 Personal history of transient ischemic attack (TIA), and cerebral infarction without residual deficits; Z87.01 Personal history of pneumonia (recurrent); R91.1 Solitary pulmonary nodule; R29.6 Repeated falls; G89.29 Other chronic pain
CPT/HCPCS: 71046; 71250; 74176; 80048; 80053; 81003; 82550; 83605; 83690; 85025; 85027; 87040; 87449; 94640; 94799; 99281; 99285; J0456; J0696; J1644; J1956; J7040

== ENCOUNTER 2018-01-11 05:27 | Emergency (ER) | payer OTHER ==
[~2018-01-11] VITALS: Ht 177.8 cm; Wt 96.9 kg
[~2018-01-11 05:27] MED LIST changes: +BREO ELLIPTA I1 EACH IH; +CEFTIN500 MG PO; +GLUCOTROL XL2.5 MG PO; +INCRUSE ELLI62.5 MCG IH; +LASIX20 MG PO; +LIDOCAINE700 MG TP; +TOBRAMYCIN SULFA5 ML RIGHT EYE; +TUMS500 MG PO
[2018-01-11 07:12] LABS: PLATELET COUNT 171 K/uL (156-360)
[2018-01-11 07:26] LABS: HEMOGLOBIN 9.5 G/DL (12.5-16.6); MCH 28.3 PG (29.0-34.0); MCHC 31.7 G/DL (30.0-36.0); MCV 89.3 FL (86-99); NRBC (%) 0.1 /100 WBC (0-0); RBC DIS.WIDTH-CV 16.3 % (11.8-14.6); RBC DIS.WIDTH-SD 53.2 % (39-53); RED BLOOD COUNT 3.36 M/uL (4.00-5.50)
[2018-01-11 07:27] LABS: WHITE BLOOD COUNT 39.6 K/uL (4.1-10.2)
[2018-01-11 07:42] LABS: ALBUMIN 3.1 G/DL (3.2-4.8); ALKALINE PHOSPHATASE 61 IU/L (3-129); ALT (GPT) 26 IU/L (3-49); AST (GOT) 31 IU/L (2-34); CHLORIDE 100 MEQ/L (99-109); CREATININE 1.3 MG/DL (0.6-1.3); GFR ESTIMATE (CALCULATED) 56 mL/min/ (58.99-99999); GLUCOSE 147 mg/dL (70-99); POTASSIUM 4.8 MEQ/L (3.7-5.4); SODIUM 137 MEQ/L (136-147); TOTAL BILIRUBIN 0.3 MG/DL (0.0-1.0); TOTAL PROTEIN 6.1 G/DL (6.4-8.3); UREA NITROGEN (BUN) 26 mg/dL (9-23)
[2018-01-11 08:08] LABS: TROP-I INTERPRETATION NEGATIVE; TROPONIN-I 0.01 ng/mL (0.0-0.30)
[2018-01-11 08:13] LABS: APPEARANCE CLEAR ((CLEAR)); BILIRUBIN NEGATIVE; BLOOD NEGATIVE; COLOR YELLOW ((YELLOW)); GLUCOSE (STRIP) NEGATIVE; KETONES NEGATIVE; LEUKOCYTES NEGATIVE; NITRITE NEGATIVE; PROTEIN (STRIP) 100; SPECIFIC GRAVITY 1.014 (1.000-1.030); UROBILINOGEN 0.2 MG/DL (0.2-1.0)
[2018-01-11 08:34] LABS: BACTERIA RARE /HPF; EPITHELIAL CELLS NONE SEEN /HPF; MUCUS NONE SEEN /LPF; RED BLOOD CELLS 0-5 /HPF (0-5); UCUL ADDED? NO; WHITE BLOOD CELLS 0-5 /HPF (0-5)
[2018-01-11] MEDS ORDERED: PERCOCET 5/31 TABLET PO (13:22)
[2018-01-11] MEDS ORDERED: FLEXERIL10 MG PO (13:22)
[2018-01-11 14:00] VITALS: BP 158/71
== END 2018-01-11 14:10 | disposition home or self-care (01) ==
LOC: EME 05:27
PROVIDERS: Physician Assistant
DX: M54.9 Dorsalgia, unspecified (principal); R91.8 Other nonspecific abnormal finding of lung field; D64.9 Anemia, unspecified; E11.9 Type 2 diabetes mellitus without complications; E78.5 Hyperlipidemia, unspecified; I10 Essential (primary) hypertension; Z99.81 Dependence on supplemental oxygen; K21.9 Gastro-esophageal reflux disease without esophagitis; Z85.828 Personal history of other malignant neoplasm of skin; Z79.82 Long term (current) use of aspirin; Z87.891 Personal history of nicotine dependence
CPT/HCPCS: 71046; 71275; 72100; 80053; 81003; 83605; 84484; 85027; 85379; 87040; 93005; 99281; 99285; J7030; J7040

== ENCOUNTER 2018-01-13 12:29 | Inpatient (IN) | payer OTHER ==
[~2018-01-13] VITALS: Ht 170.2 cm; Wt 100.4 kg
[~2018-01-13 12:29] MED LIST changes: +FLEXERIL10 MG PO; +PERCOCET 5/31 TABLET PO
[2018-01-13 13:59] LABS: PLATELET COUNT 185 K/uL (156-360)
[2018-01-13 14:07] LABS: HEMATOCRIT 28.2 % (38.0-50.0); HEMOGLOBIN 8.9 G/DL (12.5-16.6); MCH 28.2 PG (29.0-34.0); MCHC 31.6 G/DL (30.0-36.0); MCV 89.2 FL (86-99); NRBC (%) 0.1 /100 WBC (0-0); RBC DIS.WIDTH-CV 16.3 % (11.8-14.6); RBC DIS.WIDTH-SD 53.3 % (39-53); RED BLOOD COUNT 3.16 M/uL (4.00-5.50)
[2018-01-13 14:08] LABS: WHITE BLOOD COUNT 50.7 K/uL (4.1-10.2)
[2018-01-13 14:11] LABS: CHLORIDE 102 mEq/L (99-109); POTASSIUM 4.4 mEq/L (3.7-5.4); SODIUM 137 mEq/L (136-147)
[2018-01-13 14:13] LABS: GLUCOSE 197 mg/dL (70-99)
[2018-01-13 14:16] LABS: CREATININE 1.1 mg/dL (0.6-1.3); GFR ESTIMATE (CALCULATED) > 59 mL/min/ (58.99-99999)
[2018-01-13 14:17] LABS: UREA NITROGEN (BUN) 27 mg/dL (9-23)
[2018-01-13 14:25] LABS: TROP-I INTERPRETATION NEGATIVE; TROPONIN-I 0.02 ng/mL (0.0-0.30)
[2018-01-13] MEDS ORDERED: TYLENOL EXTRA500 MG PO (16:59)
[2018-01-13 17:37] VITALS: BP 181/78
[2018-01-13 18:13] VITALS: BP 148/70
[2018-01-13 18:16] LABS: APPEARANCE CLEAR ((CLEAR)); BILIRUBIN NEGATIVE; BLOOD NEGATIVE; COLOR YELLOW ((YELLOW)); GLUCOSE (STRIP) NEGATIVE; KETONES NEGATIVE; LEUKOCYTES NEGATIVE; NITRITE NEGATIVE; PROTEIN (STRIP) 100; UROBILINOGEN 0.2 MG/DL (0.2-1.0)
[2018-01-13 18:36] LABS: BACTERIA NONE SEEN /HPF; EPITHELIAL CELLS NONE SEEN /HPF; MUCUS NONE SEEN /LPF; RED BLOOD CELLS 0-5 /HPF (0-5); UCUL ADDED? NO; WHITE BLOOD CELLS 0-5 /HPF (0-5)
[2018-01-13 19:15] VITALS: BP 161/76
[2018-01-13 23:59] VITALS: BP 138/68
[2018-01-14 03:46] VITALS: BP 166/76
[2018-01-14 06:09] LABS: HEMATOCRIT 27.6 % (38.0-50.0); HEMOGLOBIN 8.6 G/DL (12.5-16.6); MCH 27.8 PG (29.0-34.0); MCHC 31.2 G/DL (30.0-36.0); MCV 89.3 FL (86-99); NRBC (%) 0.1 /100 WBC (0-0); RBC DIS.WIDTH-CV 16.1 % (11.8-14.6); RBC DIS.WIDTH-SD 52.3 % (39-53); RED BLOOD COUNT 3.09 M/uL (4.00-5.50)
[2018-01-14 06:31] LABS: PLAT.SUFFICIENCY ADEQUATE; PLATELET COUNT 191 K/uL (156-360)
[2018-01-14 06:42] LABS: CHLORIDE 104 MEQ/L (99-109); GFR ESTIMATE (CALCULATED) > 59 mL/min/ (58.99-99999); GLUCOSE 167 mg/dL (70-99); SODIUM 140 MEQ/L (136-147); UREA NITROGEN (BUN) 25 mg/dL (9-23)
[2018-01-14 07:15] VITALS: BP 182/86
[2018-01-14 11:01] LABS: INTER. NORMALIZED RATIO 1.3
[2018-01-14 11:03] LABS: PTT 32.1 SEC (25-37)
[2018-01-14 11:26] VITALS: BP 144/79
[2018-01-14 15:10] VITALS: BP 146/64
[2018-01-14 19:20] VITALS: BP 134/63
[2018-01-14 23:49] VITALS: BP 133/59
[2018-01-15] VITALS (7 sets, daily range): BP systolic 134–152; BP diastolic 58–77
[2018-01-15 13:00] LABS: HEMATOCRIT 28.9 % (38.0-50.0); HEMOGLOBIN 8.7 G/DL (12.5-16.6); MCH 27.2 PG (29.0-34.0); MCHC 30.1 G/DL (30.0-36.0); MCV 90.3 FL (86-99); NRBC (%) 0.1 /100 WBC (0-0); PLATELET COUNT 216 K/uL (156-360); RBC DIS.WIDTH-CV 16.4 % (11.8-14.6); RBC DIS.WIDTH-SD 53.9 % (39-53)
[2018-01-15 13:10] LABS: WHITE BLOOD COUNT 50.2 K/uL (4.1-10.2)
[2018-01-15 13:25] LABS: ABS NEUTROPHIL COUNT 45.6; ANISOCYTOSIS 1+; BAND NEUTROPHILS 0.9 % (0-8.0); EOSINOPHIL ABS CT 0.2; EOSINOPHILS 0.4 % (0-5.0); LYMPHOCYTES 4.8 % (15.0-45.0); METAMYELOCYTES 3.1 %; MICROCYTOSIS 1+; MONOCYTES 0.9 % (0-9.0); PLAT.SUFFICIENCY ADEQUATE; POLYCHROMASIA 2+; SEG.NEUTROPHILS 89.9 % (46.0-76.0)
[2018-01-15 13:36] LABS: CHLORIDE 102 MEQ/L (99-109); CREATININE 1.1 MG/DL (0.6-1.3); GFR ESTIMATE (CALCULATED) > 59 mL/min/ (58.99-99999); POTASSIUM 4.8 MEQ/L (3.7-5.4); SODIUM 140 MEQ/L (136-147); UREA NITROGEN (BUN) 27 mg/dL (9-23)
[2018-01-15 13:38] LABS: GLUCOSE 60 mg/dL (70-99)
[2018-01-15 19:03] LABS: COMMENTS - BLOOD GASES A+C+; DEVICE NRB; FI02 100 %; SITE RR; TOTAL RESP RATE 26 resp/min; pH 7.34 (7.35-7.45)
[2018-01-15 19:04] LABS: BASE EXCESS 2.7 mEq/L (-3 to +3); BICARBONATE 29.1 mEq/L (22-26); CARBOXY HGB 1.6 % (0-5); PCO2 54 mm Hg (35-45); PO2 151 mm Hg (80-100)
[2018-01-15 19:21] LABS: ALBUMIN 2.9 g/dL (3.2-4.8)
[2018-01-15 19:22] LABS: CHLORIDE 104 mEq/L (99-109); POTASSIUM 5.3 mEq/L (3.7-5.4); SODIUM 139 mEq/L (136-147)
[2018-01-15 19:24] LABS: TOTAL PROTEIN 5.8 g/dL (6.4-8.3)
[2018-01-15 19:26] LABS: TOTAL BILIRUBIN 0.2 mg/dL (0.0-1.0)
[2018-01-15 19:27] LABS: ALKALINE PHOSPHATASE 72 IU/L (3-129)
[2018-01-15 19:28] LABS: CREATININE 1.3 mg/dL (0.6-1.3); GFR ESTIMATE (CALCULATED) 56 mL/min/ (58.99-99999)
[2018-01-15 19:29] LABS: AST (GOT) 45 IU/L (2-34); GLUCOSE 109 mg/dL (70-99); UREA NITROGEN (BUN) 31 mg/dL (9-23)
[2018-01-15 19:30] LABS: ALT (GPT) 34 IU/L (3-49)
[2018-01-15 19:51] LABS: TROP-I INTERPRETATION NEGATIVE; TROPONIN-I 0.02 ng/mL (0.0-0.30)
[2018-01-15 22:33] LABS: HEMATOCRIT 26.3 % (38.0-50.0); HEMOGLOBIN 8.3 G/DL (12.5-16.6); MCH 28.3 PG (29.0-34.0); MCHC 31.6 G/DL (30.0-36.0); MCV 89.8 FL (86-99); NRBC (%) 0.1 /100 WBC (0-0); PLATELET COUNT 188 K/uL (156-360); RBC DIS.WIDTH-CV 16.5 % (11.8-14.6); RBC DIS.WIDTH-SD 53.9 % (39-53); RED BLOOD COUNT 2.93 M/uL (4.00-5.50)
[2018-01-15 22:37] LABS: WHITE BLOOD COUNT 44.6 K/uL (4.1-10.2)
[2018-01-16] VITALS (9 sets, daily range): BP systolic 97–190; BP diastolic 46–83
[2018-01-16 00:08] LABS: ABS NEUTROPHIL COUNT 39.9; ANISOCYTOSIS NONE SEEN; ATYPICAL LYMPHOCYTE 1.7 %; BAND NEUTROPHILS 1.7 % (0-8.0); BASOPHILS 0.9 %; EOSINOPHIL ABS CT 0; HYPOCHROMASIA 1+; METAMYELOCYTES 0.9 %; MONOCYTES 2.6 % (0-9.0); MYELOCYTES 4.4 %; PLAT.SUFFICIENCY ADEQUATE; POLYCHROMASIA 1+; SEG.NEUTROPHILS 87.8 % (46.0-76.0); TOX.VACUOLIZATION 1+
[2018-01-16 05:39] LABS: HEMATOCRIT 28.8 % (38.0-50.0); HEMOGLOBIN 8.6 G/DL (12.5-16.6); MCH 27.5 PG (29.0-34.0); MCHC 29.9 G/DL (30.0-36.0); NRBC (%) 0.1 /100 WBC (0-0); RBC DIS.WIDTH-CV 16.1 % (11.8-14.6); RBC DIS.WIDTH-SD 54.9 % (39-53); RED BLOOD COUNT 3.13 M/uL (4.00-5.50)
[2018-01-16 05:52] LABS: PLAT.SUFFICIENCY ADEQUATE; PLATELET COUNT 195 K/uL (156-360); WHITE BLOOD COUNT 48.5 K/uL (4.1-10.2)
[2018-01-16 06:11] LABS: CHLORIDE 104 MEQ/L (99-109); CREATININE 1.2 MG/DL (0.6-1.3); GFR ESTIMATE (CALCULATED) > 59 mL/min/ (58.99-99999); SODIUM 142 MEQ/L (136-147); UREA NITROGEN (BUN) 34 mg/dL (9-23)
[2018-01-16 06:20] LABS: GLUCOSE 246 mg/dL (70-99)
[2018-01-16 14:49] LABS: CHLORIDE 104 MEQ/L (99-109); CREATININE 1.4 MG/DL (0.6-1.3); GFR ESTIMATE (CALCULATED) 52 mL/min/ (58.99-99999); GLUCOSE 315 mg/dL (70-99); SODIUM 138 MEQ/L (136-147); UREA NITROGEN (BUN) 41 mg/dL (9-23)
[2018-01-16 14:53] LABS: POTASSIUM 4.6 MEQ/L (3.7-5.4)
[2018-01-17] VITALS (12 sets, daily range): BP systolic 135–191; BP diastolic 64–93
[2018-01-17 06:24] LABS: ALBUMIN 2.7 G/DL (3.2-4.8); ALKALINE PHOSPHATASE 67 IU/L (3-129); ALT (GPT) 36 IU/L (3-49); AST (GOT) 39 IU/L (2-34); CHLORIDE 103 MEQ/L (99-109); CREATININE 1.4 MG/DL (0.6-1.3); GFR ESTIMATE (CALCULATED) 52 mL/min/ (58.99-99999); GLUCOSE 183 mg/dL (70-99); POTASSIUM 4.9 MEQ/L (3.7-5.4); SODIUM 138 MEQ/L (136-147); TOTAL PROTEIN 5.4 G/DL (6.4-8.3); UREA NITROGEN (BUN) 49 mg/dL (9-23)
[2018-01-17 06:43] LABS: TOTAL BILIRUBIN 0.2 MG/DL (0.0-1.0)
[2018-01-17 07:18] LABS: ANISOCYTOSIS 2+; BASOPH.STIPPLING 2+; MICROCYTOSIS 2+; PLAT.SUFFICIENCY ADEQUATE; POLYCHROMASIA 2+
[2018-01-17 07:19] LABS: ABS NEUTROPHIL COUNT 50.3; BAND NEUTROPHILS 6.6 % (0-8.0); EOSINOPHIL ABS CT 0; HEMATOCRIT 25.5 % (38.0-50.0); HEMOGLOBIN 7.7 G/DL (12.5-16.6); LYMPHOCYTES 1.3 % (15.0-45.0); MCH 27.7 PG (29.0-34.0); MCHC 30.2 G/DL (30.0-36.0); MCV 91.7 FL (86-99); METAMYELOCYTES 4.8 %; MONOCYTES 2.2 % (0-9.0); NRBC (%) 0.1 /100 WBC (0-0); PLATELET COUNT 199 K/uL (156-360); RBC DIS.WIDTH-CV 16.4 % (11.8-14.6); RBC DIS.WIDTH-SD 55.5 % (39-53); RED BLOOD COUNT 2.78 M/uL (4.00-5.50); SEG.NEUTROPHILS 85.1 % (46.0-76.0); SMUDGE CELLS 0.9; WHITE BLOOD COUNT 54.8 K/uL (4.1-10.2)
[2018-01-17 21:05] LABS: HEMATOCRIT 32.1 % (38.0-50.0); MCV 90.4 FL (86-99)
[2018-01-17 21:21] LABS: HEMOGLOBIN 10.3 G/DL (12.5-16.6)
[2018-01-18] VITALS (14 sets, daily range): BP systolic 102–211; BP diastolic 47–99
[2018-01-18 03:24] LABS: BASE EXCESS 5.8 mEq/L (-3 to +3); BICARBONATE 32.4 mEq/L (22-26); CARBOXY HGB 1.8 % (0-5); COMMENTS - BLOOD GASES C+; DEVICE HFNC; METHEMOGLOBIN 0.9 % (0-1.5); O2 FLOW 10 L/MIN; O2 SATURATION (CALCULATED) 95.1 % (95-99); PCO2 56 mm Hg (35-45); PO2 69 mm Hg (80-100); SITE LR; pH 7.37 (7.35-7.45)
[2018-01-18 05:21] LABS: HEMATOCRIT 33.1 % (38.0-50.0); HEMOGLOBIN 10.3 G/DL (12.5-16.6); MCH 28.4 PG (29.0-34.0); MCHC 31.1 G/DL (30.0-36.0); MCV 91.2 FL (86-99); NRBC (%) 0.2 /100 WBC (0-0); PLATELET COUNT 205 K/uL (156-360); RBC DIS.WIDTH-CV 15.9 % (11.8-14.6); RBC DIS.WIDTH-SD 52.5 % (39-53)
[2018-01-18 05:22] LABS: RED BLOOD COUNT 3.63 M/uL (4.00-5.50); WHITE BLOOD COUNT 59.7 K/uL (4.1-10.2)
[2018-01-18 05:47] LABS: ABS NEUTROPHIL COUNT 54.3; ANISOCYTOSIS NONE SEEN; ATYPICAL LYMPHOCYTE 0.4 %; BAND NEUTROPHILS 4.3 % (0-8.0); BASOPHILS 0.4 %; EOSINOPHIL ABS CT 0.2; EOSINOPHILS 0.4 % (0-5.0); GIANT PLATELETS 2+; LYMPHOCYTES 0.4 % (15.0-45.0); METAMYELOCYTES 0.9 %; MONOCYTES 2.2 % (0-9.0); MYELOCYTES 4.3 %; NUCLEATED RBC'S 0.4; PLAT.SUFFICIENCY ADEQUATE; SEG.NEUTROPHILS 86.7 % (46.0-76.0); TOX.VACUOLIZATION 1+
[2018-01-18 06:07] LABS: ALBUMIN 2.9 G/DL (3.2-4.8); ALKALINE PHOSPHATASE 76 IU/L (3-129); ALT (GPT) 34 IU/L (3-49); AST (GOT) 27 IU/L (2-34); CHLORIDE 103 MEQ/L (99-109); CREATININE 1.1 MG/DL (0.6-1.3); GFR ESTIMATE (CALCULATED) > 59 mL/min/ (58.99-99999); GLUCOSE 180 mg/dL (70-99); POTASSIUM 4.9 MEQ/L (3.7-5.4); SODIUM 143 MEQ/L (136-147); TOTAL PROTEIN 5.3 G/DL (6.4-8.3); UREA NITROGEN (BUN) 34 mg/dL (9-23)
[2018-01-18 06:14] LABS: TOTAL BILIRUBIN 0.3 MG/DL (0.0-1.0)
[2018-01-18 11:54] LABS: BASE EXCESS 4.9 mEq/L (-3 to +3); BICARBONATE 32.7 mEq/L (22-26); CARBOXY HGB 1.5 % (0-5); COMMENTS - BLOOD GASES A+C+; DEVICE NCH; METHEMOGLOBIN 1.3 % (0-1.5); O2 FLOW 10 L/MIN; O2 SATURATION (CALCULATED) 97.2 % (95-99); PCO2 65 mm Hg (35-45); PO2 87 mm Hg (80-100); SITE LR; TOTAL RESP RATE 32 resp/min; pH 7.31 (7.35-7.45)
[2018-01-18 18:41] LABS: HEMATOCRIT 32.2 % (38.0-50.0); HEMOGLOBIN 9.7 G/DL (12.5-16.6); MCHC 30.1 G/DL (30.0-36.0); MCV 92.8 FL (86-99); NRBC (%) 0.1 /100 WBC (0-0); PLATELET COUNT 172 K/uL (156-360); RBC DIS.WIDTH-CV 15.9 % (11.8-14.6); RBC DIS.WIDTH-SD 54.2 % (39-53); RED BLOOD COUNT 3.47 M/uL (4.00-5.50)
[2018-01-18 18:46] LABS: WHITE BLOOD COUNT 44.9 K/uL (4.1-10.2)
[2018-01-18 18:47] LABS: TROP-I INTERPRETATION NEGATIVE; TROPONIN-I 0.02 ng/mL (0.0-0.30)
[2018-01-18 19:18] LABS: ALBUMIN 2.7 G/DL (3.2-4.8); ALKALINE PHOSPHATASE 80 IU/L (3-129); ALT (GPT) 25 IU/L (3-49); AST (GOT) 24 IU/L (2-34); CHLORIDE 104 MEQ/L (99-109); CREATININE 1.1 MG/DL (0.6-1.3); GFR ESTIMATE (CALCULATED) > 59 mL/min/ (58.99-99999); GLUCOSE 233 mg/dL (70-99); MAGNESIUM 2.2 mg/dl (1.3-2.7); PHOSPHORUS 6.5 mg/dL (2.5-4.9); POTASSIUM 5.2 MEQ/L (3.7-5.4); SODIUM 140 MEQ/L (136-147); TOTAL BILIRUBIN 0.4 MG/DL (0.0-1.0); TOTAL PROTEIN 5.4 G/DL (6.4-8.3); TRIGLYCERIDES 242 MG/DL (Normal: <150); UREA NITROGEN (BUN) 38 mg/dL (9-23)
[2018-01-18 19:47] LABS: ABS NEUTROPHIL COUNT 39.3; ANISOCYTOSIS 1+; BAND NEUTROPHILS 13.9 % (0-8.0); BASOPH.STIPPLING 1+; EOSINOPHIL ABS CT 0; HYPOCHROMASIA 1+; LYMPHOCYTES 4.3 % (15.0-45.0); MICROCYTOSIS 1+; MYELOCYTES 5.2 %; PLAT.SUFFICIENCY ADEQUATE; POLYCHROMASIA 1+; SEG.NEUTROPHILS 73.6 % (46.0-76.0)
[2018-01-18 20:23] LABS: COMMENTS - BLOOD GASES C+; DEVICE VENT; FI02 100 %; MECHANICAL RATE 16 resp/min; MODE ACVC; PEEP 7 CM/H20; SITE LB; TIDAL VOLUME 500 ML; TOTAL RESP RATE 16 resp/min
[2018-01-18 20:24] LABS: BICARBONATE 30.5 mEq/L (22-26); METHEMOGLOBIN 0.5 % (0-1.5); O2 SATURATION (CALCULATED) 99.2 % (95-99); PCO2 62 mm Hg (35-45); PO2 217 mm Hg (80-100)
[2018-01-18 20:25] LABS: BASE EXCESS 2.9 mEq/L (-3 to +3)
[2018-01-19] VITALS (21 sets, daily range): BP systolic 112–163; BP diastolic 49–67
[2018-01-19 07:39] LABS: HEMATOCRIT 30.9 % (38.0-50.0); HEMOGLOBIN 9.7 G/DL (12.5-16.6); MCHC 31.4 G/DL (30.0-36.0); MCV 92.5 FL (86-99); NRBC (%) 0.1 /100 WBC (0-0); RBC DIS.WIDTH-CV 16.1 % (11.8-14.6); RBC DIS.WIDTH-SD 54.6 % (39-53); RED BLOOD COUNT 3.34 M/uL (4.00-5.50)
[2018-01-19 07:48] LABS: ALBUMIN 2.5 G/DL (3.2-4.8); CHLORIDE 106 MEQ/L (99-109); POTASSIUM 5.1 MEQ/L (3.7-5.4); SODIUM 142 MEQ/L (136-147); TOTAL BILIRUBIN 0.2 MG/DL (0.0-1.0)
[2018-01-19 08:17] LABS: PLATELET COUNT 176 K/uL (156-360)
[2018-01-19 08:23] LABS: ALKALINE PHOSPHATASE 81 IU/L (3-129); ALT (GPT) 23 IU/L (3-49); AST (GOT) 21 IU/L (2-34); CREATININE 1.2 MG/DL (0.6-1.3); GFR ESTIMATE (CALCULATED) > 59 mL/min/ (58.99-99999); GLUCOSE 282 mg/dL (70-99); TOTAL PROTEIN 4.8 G/DL (6.4-8.3); UREA NITROGEN (BUN) 44 mg/dL (9-23)
[2018-01-20] VITALS (24 sets, daily range): BP systolic 136–170; BP diastolic 56–83
[2018-01-20 13:56] LABS: HEMATOCRIT 31.7 % (38.0-50.0); MCH 28.9 PG (29.0-34.0); MCHC 31.5 G/DL (30.0-36.0); MCV 91.6 FL (86-99); NRBC (%) 0.1 /100 WBC (0-0); PLATELET COUNT 179 K/uL (156-360); RBC DIS.WIDTH-CV 15.9 % (11.8-14.6); RBC DIS.WIDTH-SD 53.1 % (39-53); RED BLOOD COUNT 3.46 M/uL (4.00-5.50)
[2018-01-20 14:00] LABS: WHITE BLOOD COUNT 49.7 K/uL (4.1-10.2)
[2018-01-20 14:01] LABS: ALBUMIN 2.8 g/dL (3.2-4.8); CHLORIDE 110 mEq/L (99-109); POTASSIUM 5.2 mEq/L (3.7-5.4); SODIUM 143 mEq/L (136-147)
[2018-01-20 14:02] LABS: MAGNESIUM 2.3 mg/dL (1.3-2.7)
[2018-01-20 14:04] LABS: GLUCOSE 246 mg/dL (70-99); TOTAL PROTEIN 5.3 g/dL (6.4-8.3)
[2018-01-20 14:07] LABS: CREATININE 1.2 mg/dL (0.6-1.3); GFR ESTIMATE (CALCULATED) > 59 mL/min/ (58.99-99999); PHOSPHORUS 3.9 mg/dL (2.5-4.9)
[2018-01-20 14:08] LABS: UREA NITROGEN (BUN) 49 mg/dL (9-23)
[2018-01-20 14:09] LABS: AST (GOT) 25 IU/L (2-34)
[2018-01-20 14:10] LABS: ALKALINE PHOSPHATASE 135 IU/L (3-129); ALT (GPT) 28 IU/L (3-49); TOTAL BILIRUBIN 0.3 mg/dL (0.0-1.0)
[2018-01-20 15:00] LABS: ABS NEUTROPHIL COUNT 41.8; ANISOCYTOSIS 1+; ATYPICAL LYMPHOCYTE 4.4 %; BAND NEUTROPHILS 8.4 % (0-8.0); BASOPH.STIPPLING 1+; EOSINOPHIL ABS CT 0; HEMATOLOGY COMMENT 1 SN; LYMPHOCYTES 3.6 % (15.0-45.0); METAMYELOCYTES 3.1 %; MICROCYTOSIS 1+; MONOCYTES 3.5 % (0-9.0); MYELOCYTES 1.3 %; NUCLEATED RBC'S 0.4; PLAT.SUFFICIENCY ADEQUATE; POLYCHROMASIA 1+; SEG.NEUTROPHILS 75.7 % (46.0-76.0)
[2018-01-20 19:36] LABS: COMMENTS - BLOOD GASES C+A+; DEVICE VENT; FI02 60 %; SITE RR
[2018-01-20 19:37] LABS: BASE EXCESS 2.5 mEq/L (-3 to +3); BICARBONATE 29.1 mEq/L (22-26); CARBOXY HGB 1.2 % (0-5); METHEMOGLOBIN 1.2 % (0-1.5); MODE TUBE COMP; O2 SATURATION (CALCULATED) 95.6 % (95-99); PCO2 54 mm Hg (35-45); PEEP 5 CM/H20; PO2 75 mm Hg (80-100); TOTAL RESP RATE 30 resp/min; pH 7.34 (7.35-7.45)
[2018-01-21] VITALS (34 sets, daily range): BP systolic 118–169; BP diastolic 44–118
[2018-01-21 02:01] LABS: CHLORIDE 111 mEq/L (99-109); POTASSIUM 5.3 mEq/L (3.7-5.4); SODIUM 145 mEq/L (136-147)
[2018-01-21 02:03] LABS: GLUCOSE 267 mg/dL (70-99)
[2018-01-21 02:07] LABS: CREATININE 1.1 mg/dL (0.6-1.3); GFR ESTIMATE (CALCULATED) > 59 mL/min/ (58.99-99999)
[2018-01-21 02:08] LABS: UREA NITROGEN (BUN) 50 mg/dL (9-23)
[2018-01-21 06:16] LABS: HEMATOCRIT 33.7 % (38.0-50.0); HEMOGLOBIN 10.1 G/DL (12.5-16.6); MCV 93.4 FL (86-99); NRBC (%) 0.1 /100 WBC (0-0); PLATELET COUNT 179 K/uL (156-360); RBC DIS.WIDTH-CV 15.6 % (11.8-14.6); RBC DIS.WIDTH-SD 53.5 % (39-53); RED BLOOD COUNT 3.61 M/uL (4.00-5.50)
[2018-01-21 06:20] LABS: WHITE BLOOD COUNT 47.1 K/uL (4.1-10.2)
[2018-01-21 06:44] LABS: ALBUMIN 2.7 G/DL (3.2-4.8); ALT (GPT) 21 IU/L (3-49); AST (GOT) 22 IU/L (2-34); CHLORIDE 109 MEQ/L (99-109); CREATININE 1.1 MG/DL (0.6-1.3); GFR ESTIMATE (CALCULATED) > 59 mL/min/ (58.99-99999); GLUCOSE 270 mg/dL (70-99); POTASSIUM 5.2 MEQ/L (3.7-5.4); SODIUM 143 MEQ/L (136-147); TOTAL PROTEIN 5.3 G/DL (6.4-8.3); UREA NITROGEN (BUN) 45 mg/dL (9-23)
[2018-01-21 06:59] LABS: ABS NEUTROPHIL COUNT 39.3; ANISOCYTOSIS 1+; BAND NEUTROPHILS 11.3 % (0-8.0); EOSINOPHIL ABS CT 0; LYMPHOCYTES 1.7 % (15.0-45.0); METAMYELOCYTES 6.1 %; MONOCYTES 0.4 % (0-9.0); MYELOCYTES 8.3 %; NUCLEATED RBC'S 0.4; PLAT.SUFFICIENCY ADEQUATE; POLYCHROMASIA 1+; SEG.NEUTROPHILS 72.2 % (46.0-76.0)
[2018-01-21 07:02] LABS: ALKALINE PHOSPHATASE 118 IU/L (3-129); TOTAL BILIRUBIN 0.3 MG/DL (0.0-1.0)
[2018-01-21 14:44] LABS: COMMENTS - BLOOD GASES A+C+; CONTINUOUS POS AIRWAY PRESSURE 5 cm H2O; DEVICE VENT; FI02 60 %; MODE SPON; PRES. SUPPORT 15 CM/H2O; SITE LR; TOTAL RESP RATE 26 resp/min
[2018-01-21 14:45] LABS: BASE EXCESS 2.6 mEq/L (-3 to +3); BICARBONATE 27.9 mEq/L (22-26); CARBOXY HGB 1.2 % (0-5); METHEMOGLOBIN 1.4 % (0-1.5); PCO2 45 mm Hg (35-45); PO2 60 mm Hg (80-100)
[2018-01-21 17:51] LABS: CHLORIDE 109 mEq/L (99-109); POTASSIUM 5.5 mEq/L (3.7-5.4); SODIUM 144 mEq/L (136-147)
[2018-01-21 17:52] LABS: MAGNESIUM 2.1 mg/dL (1.3-2.7)
[2018-01-21 17:53] LABS: GLUCOSE 274 mg/dL (70-99)
[2018-01-21 17:57] LABS: CREATININE 1.1 mg/dL (0.6-1.3); GFR ESTIMATE (CALCULATED) > 59 mL/min/ (58.99-99999); PHOSPHORUS 3.7 mg/dL (2.5-4.9)
[2018-01-21 17:58] LABS: UREA NITROGEN (BUN) 48 mg/dL (9-23)
[2018-01-22] VITALS: BP 114/52
[2018-01-22 01:00] VITALS: BP 123/58
[2018-01-22 02:00] VITALS: BP 91/53
== END 2018-01-22 02:32 | DRG 208 ==
LOC: EME 12:29 → 5SOUTH 15:14 → EDOF 15:14 → ENRESERV 15:16 → 5SOUTH 17:00 → ENRESERV 01-15 19:28 → 5SOUTH 01-15 19:29 → ENRESERV 01-15 19:30 → 4EAST 01-15 19:51 → ENRESERV 01-18 14:16 → 4WEST 01-18 14:16
PROVIDERS: Emergency Medicine; Hospitalist; Internal Medicine; Physician Assistant; Physician Assistant Medical; Surgery
DX: C78.02 Secondary malignant neoplasm of left lung (principal); J96.21 Acute and chronic respiratory failure with hypoxia; J96.22 Acute and chronic respiratory failure with hypercapnia; I63.9 Cerebral infarction, unspecified; J15.9 Unspecified bacterial pneumonia; J44.1 Chronic obstructive pulmonary disease with (acute) exacerbation; J44.0 Chronic obstructive pulmonary disease with (acute) lower respiratory infection; C79.51 Secondary malignant neoplasm of bone; C80.1 Malignant (primary) neoplasm, unspecified; Z99.81 Dependence on supplemental oxygen; E11.9 Type 2 diabetes mellitus without complications; K66.9 Disorder of peritoneum, unspecified; G47.33 Obstructive sleep apnea (adult) (pediatric); I10 Essential (primary) hypertension; K59.00 Constipation, unspecified; J98.11 Atelectasis; G89.3 Neoplasm related pain (acute) (chronic); C44.311 Basal cell carcinoma of skin of nose; D63.8 Anemia in other chronic diseases classified elsewhere; E78.5 Hyperlipidemia, unspecified; K21.9 Gastro-esophageal reflux disease without esophagitis; H91.90 Unspecified hearing loss, unspecified ear; Z66 Do not resuscitate; E66.9 Obesity, unspecified; Z68.34 Body mass index [BMI] 34.0-34.9, adult; Z85.46 Personal history of malignant neoplasm of prostate; Z85.828 Personal history of other malignant neoplasm of skin; Z86.73 Personal history of transient ischemic attack (TIA), and cerebral infarction without residual deficits; Z87.01 Personal history of pneumonia (recurrent); Z87.891 Personal history of nicotine dependence; Z79.84 Long term (current) use of oral hypoglycemic drugs
CPT/HCPCS: 36600; 70450; 70553; 71045; 71046; 71275; 72100; 72158; 74176; 74177; 77012; 80048; 80048 91; 80053; 80202; 81003; 82550; 82948; 83605; 83735; 83880; 84100; 84145 90; 84478; 84484; 85014; 85018; 85025; 85025 91; 85027; 85379; 85610; 85730; 86850; 86900; 86901; 86920; 87040; 87070; 87205; 87641; 88305; 88341 TC; 88342 TC; 93005; 94003; 94640; 94660; 94669; 94760; 94799; 99281; 99285; C1751; J0360; J1100; J1170; J1650; J1815; J1885; J1940; J2060; J2543; J2704; J2920; J2930; J3010; J3370; J7030; J7040; J7050; J7512; P9016